=== PATIENT | female | born 1955 | race Caucasian/White ===

== ENCOUNTER 2016-12-30 16:18 | Emergency (ER) | payer OTHER ==
[~2016-12-30] VITALS: Ht 160 cm; Wt 95.0 kg
[2016-12-30 16:20] VITALS: BP 160/80; PULSE 95; RESP 20; TEMP 98.1; O2SAT 92
[2016-12-30 16:53] VITALS: PULSE 84; RESP 17; O2SAT 96
--- NOTE | 2016-12-30 17:13 | PD ---
HPI Chief Complaint: Cold / Flu Symptoms Time Seen by Provider: 17:10 Travel History International Travel<30 days: Yes Contact w/Intl Traveler<30days: [place] Country Traveled to: [place] Traveled to known affect area: No History of Present Illness HPI Patient comes in for evaluation of possible sinus infection that began 3 days ago. Patient states she began having sinus pain and pressure [place]. Patient had associated ear pain, sore throat and a cough is occasionally productive with thick greenish phlegm. Patient is uncertain if she 's had any fevers. Denies any nausea, vomiting, diarrhea, chest pain, shortness of breath, abdominal pain, headache, or neck pain. Patient states she 's been taking Advil that has helped with the pain some. PFSH Past Medical History Anxiety: Yes Respiratory: Yes (smoker, asthma) Social History Tobacco Use: No Substance Use: No Allergies-Medications (Allergen,Severity, Reaction): Coded Allergies: Penicillin (Verified Allergy, Severe, swelling, 12/30/16) Reported Meds & Prescriptions Reported Meds & Active Scripts Active No Active Prescriptions or Reported Medications Review of Systems Except as stated in HPI: all other systems reviewed are Neg Physical Exam Narrative GENERAL: Well-developed, overly nourished, in no acute distress, and non-ill appearing. SKIN: Warm and dry. HEAD: Atraumatic. Normocephalic. EYES: Pupils equal and round. EOMI. No scleral icterus. No injection or drainage. ENT: No nasal bleeding or discharge. Mucous membranes pink and moist. Left tympanic membranes mildly erythematous and non-bulging. Right tympanic membrane is pearly granger. Posterior pharynx erythematous without exudate. Uvula is midline. Tenderness bilateral maxillary sinuses. NECK: Trachea midline. No cervical lymphadenopathy. Supple. No nuclear rigidity. CARDIOVASCULAR: Regular rate and rhythm. No murmur appreciated. RESPIRATORY: No accessory muscle use. No respiratory distress. Clear to auscultation. Breath sounds equal bilaterally. GASTROINTESTINAL: Abdomen soft, non-tender, nondistended. Hepatic and splenic margins not palpable. No pulsatile mass. MUSCULOSKELETAL: No obvious deformities. No clubbing. No cyanosis. No edema. Full range of motion. NEUROLOGICAL: Awake and alert. No obvious cranial nerve deficits. Motor grossly within normal limits. Normal speech. PSYCHIATRIC: Appropriate mood and affect; insight and judgment normal. Data Data Last Documented VS Vital Signs Date Time Temp Pulse Resp B/P Pulse Ox O2 Delivery O2 Flow Rate FiO2 12/30/16 16:53 84 17 96 12/30/16 16:20 98.1 160/80 Room Air MDM Medical Decision Making Medical Screen Exam Complete: Yes Emergency Medical Condition: Yes Differential Diagnosis Influenza, strep pharyngitis, sinusitis, allergies, upper respiratory infection , other Narrative Course Patient looks great, non-ill appearing. The patient is tolerating fluids and is well hydrated. Appears acute sinusitis. No clinical evidence by history or evaluation to suspect meningitis and/or sepsis. There was no evidence to suggest deep abscess or cavernous sinus involvement. I discussed with the patient, diagnosis, plan of care, medications and to follow up with the patient s primary physician. The patient was instructed to return if the worsens in anyway, especially if not tolerating fluids, increased sinus pain or swelling, headache, persistent fever, difficulty swallowing or breathing, or as needed. The patient agreed with plan. Patient in no obvious distress upon re-evaluation. Patient was asked if they wanted to speak to my attending, which the patient did not wish to do at this time. Any questions/concerns in reference to patient diagnosis/condition discussed and clarified prior to patient's discharge. Reinforced sheer importance of close follow up with patient's primary physician or primary care clinic. Instructed patient to return to ED immediately, if symptoms return/ worsen. Pt showed understanding of above instructions. Further instructions and recommendations were detailed in discharge paperwork. Pt ambulated without difficulty out of ED at discharge. Diagnosis Primary Impression: Sinusitis, acute Qualified Code: J01.00 - Acute maxillary sinusitis, recurrence not specified Patient Instructions: General Instructions, Sinusitis (ED) Additional Instructions: Follow-up with your primary care physician this week for reevaluation. Take all medication as prescribed. Use [id number] Tylenol and/or ibuprofen as needed for pain and/or fevers. Follow instructions on the packaging. Drink plenty of non-caffeinated and nonalcoholic fluids. Return to the emergency department if symptoms get worse. Med/Other Pt SpecificInfo: Prescription(s) given Scripts No Active Prescriptions or Reported Meds Disposition: 01 DISCHARGE HOME Condition: Stable Jose Lobato Dec 30, 2016 17:13
[2016-12-30] MEDS ORDERED: ZITHTAB PO (17:14)
== END 2016-12-30 17:31 | disposition home or self-care (01) ==
LOC: NEPB 16:18
DX: J01.00 Acute maxillary sinusitis, unspecified (principal); H92.09 Otalgia, unspecified ear; R05 Cough; R09.3 Abnormal sputum; Z86.59 Personal history of other mental and behavioral disorders; Z87.09 Personal history of other diseases of the respiratory system
CPT/HCPCS: 99283